=== PATIENT | female | born 1970 | race Two or more races ===

== ENCOUNTER 2020-12-16 15:31 | Emergency (ER) | payer SELFPAY ==
[2020-12-16] MEDS ORDERED: Acetaminophen 500 MG Tab PO ONE (16:19)
[2020-12-16] MEDS ORDERED: Sodium Chloride 0.9% 2.5 ML Syringe FLUSH PRN (16:19)
[2020-12-16] MEDS ORDERED: Sodium Chloride 0.9% 1,000 ML IV ONE (16:19)
[2020-12-16] MEDS ORDERED: Sodium Chloride 0.9% 10 ML Syringe FLUSH PRN (16:19)
[2020-12-16] MEDS ORDERED: Ketorolac 15 MG/ML SDV IVPUSH ONE (16:20)
--- NOTE | 2020-12-16 16:21 | EDM.PDOC ---
ED HPI GENERAL MEDICAL PROBLEM - General Stated Complaint: ABDOMINAL PAIN, HEADACHE Time Seen by Provider: 12/16/20 15:33 Source of Information: Reports: Patient History Limitations: Reports: No Limitations - History of Present Illness INITIAL COMMENTS - FREE TEXT/NARRATIVE: 50-year-old female no past medical history presents for lower abdominal pain, dysuria, hematuria, subjective fevers last night with chills all worsening over the last 4 days. No past medical history, she is been taking ibuprofen without relief. Denies nausea or vomiting denies shortness of breath or chest pain, pain does radiate to bilateral back right greater than left. abdomen Pain Score (Numeric/FACES): 8 - Related Data Allergies Allergy/AdvReac Type Severity Reaction Status Date / Time No Known Allergies Allergy Verified 12/16/20 16:22 Home Meds: Home Meds Acetaminophen/oxyCODONE [Percocet 325-5 MG] 1 each PO Q4H PRN #18 tab 12/16/20 [Rx] Sulfamethoxazole/Trimethoprim [Bactrim Ds Tablet] 1 each PO BID 14 Days #28 tablet 12/16/20 [Rx] ED ROS GENERAL - Review of Systems Review Of Systems: Comprehensive ROS is negative, except as noted in HPI. ED EXAM, GENERAL - Physical Exam Exam: See Below Exam Limited By: No Limitations General Appearance: Alert, WD/WN, No Apparent Distress Ears: Hearing Grossly Normal Throat/Mouth: Normal Voice, No Airway Compromise Head: Atraumatic, Normocephalic Neck: Normal Inspection Respiratory/Chest: No Respiratory Distress, Lungs Clear, Normal Breath Sounds, No Accessory Muscle Use Cardiovascular: Normal Peripheral Pulses, Regular Rate, Rhythm GI/Abdominal: Soft, Other (b/l lower abdominal/suprapubic TTP without guarding or rebound) Extremities: Normal Inspection Neurological: Alert Psychiatric: Normal Affect, Normal Mood Skin Exam: Warm, Dry, Intact, Normal Color Course - Vital Signs Last Recorded V/S: Last Vital Signs Temp 97 F 12/16/20 15:59 Pulse 97 12/16/20 15:59 Resp 16 12/16/20 15:59 BP 113/70 12/16/20 15:59 Pulse Ox 97 12/16/20 15:59 - Orders/Labs/Meds Orders: Active Orders 24 hr Category Date Time Status Sodium Chloride 0.9% [Saline Flush] Med 12/16/20 16:19 Active 10 ml FLUSH ASDIRECTED PRN Sodium Chloride 0.9% [Saline Flush] Med 12/16/20 16:19 Active 2.5 ml FLUSH ASDIRECTED PRN cefTRIAXone [Rocephin in Dextrose,Iso-Osm 1 GM/50 ML] 1 Med 12/16/20 17:51 Active gm Premix Bag 1 bag IV ONETIME Saline Lock Insert [OM.PC] Stat Oth 12/16/20 16:19 Ordered Medication Orders Ceftriaxone Sodium/Dextrose 1 (gm/ Premix) 50 mls @ 100 mls/hr IV ONETIME ONE Stop: 12/16/20 18:20 Last Admin: 12/16/20 17:55 Dose: 100 mls/hr Documented by: LEILANI Sodium Chloride (Sodium Chloride 0.9% 10 Ml Syringe) 10 ml FLUSH ASDIRECTED PRN PRN Reason: Keep Vein Open Last Admin: 12/16/20 16:46 Dose: 10 ml Documented by: LEILANI Sodium Chloride (Sodium Chloride 0.9% 2.5 Ml Syringe) 2.5 ml FLUSH ASDIRECTED PRN PRN Reason: Keep Vein Open Last Admin: 12/16/20 16:46 Dose: 2.5 ml Documented by: LEILANI Labs: Laboratory Tests 12/16/20 12/16/20 12/16/20 Range/Units 16:10 16:10 16:30 WBC 9.69 (4.0-11.0) K/uL RBC 4.27 L (4.30-5.90) M/uL Hgb 12.8 (12.0-16.0) g/dL Hct 38.2 (36.0-46.0) % MCV 89.5 (80.0-98.0) fL MCH 30.0 (27.0-32.0) pg MCHC 33.5 (31.0-37.0) g/dL RDW Std Deviation 40.4 (28.0-62.0) fl RDW Coeff of Adam 13 (11.0-15.0) % Plt Count 235 (150-400) K/uL MPV 10.60 (7.40-12.00) fL Neut % (Auto) 84.7 H (48.0-80.0) % Lymph % (Auto) 10.2 L (16.0-40.0) % [place] % (Auto) 4.7 (0.0-15.0) % Eos % (Auto) 0.2 (0.0-7.0) % Baso % (Auto) 0.2 (0.0-1.5) % Neut # (Auto) 8.2 H (1.4-5.7) K/uL Lymph # (Auto) 1.0 (0.6-2.4) K/uL [place] # (Auto) 0.5 (0.0-0.8) K/uL Eos # (Auto) 0.0 (0.0-0.7) K/uL Baso # (Auto) 0.0 (0.0-0.1) K/uL Nucleated RBC % 0.0 /100WBC Nucleated RBCs # 0 K/uL Lactate (0.20-2.00) mmol/L Sodium (136-145) mmol/L Potassium (3.5-5.1) mmol/L Chloride (98-107) mmol/L Carbon Dioxide (21.0-32.0) mmol/L BUN (7.0-18.0) mg/dL Creatinine (0.6-1.0) mg/dL Est Cr Clr Drug Dosing Estimated GFR (MDRD) ml/min Glucose (74-106) mg/dL Calcium (8.5-10.1) mg/dL Total Bilirubin (0.2-1.0) mg/dL AST (15-37) IU/L ALT (14-63) IU/L Alkaline Phosphatase (46-116) U/L Total Protein (6.4-8.2) g/dL Albumin (3.4-5.0) g/dL Globulin (2.6-4.0) g/dL Albumin/Globulin Ratio (0.9-1.6) Urine Color YELLOW Urine Appearance SLT CLOUDY Urine pH 6.0 (5.0-8.0) Ur Specific [place] 1.020 (1.001-1.035) Urine Protein 100 H (NEGATIVE) mg/dL Urine Glucose (UA) >=1000 (NEGATIVE) mg/dL Urine Ketones NEGATIVE (NEGATIVE) mg/dL Urine Occult Blood LARGE H (NEGATIVE) Urine Nitrite POSITIVE H (NEGATIVE) Urine Bilirubin NEGATIVE (NEGATIVE) Urine Urobilinogen 0.2 (<2.0) EU/dL Ur Leukocyte Esterase MODERATE H (NEGATIVE) Urine RBC 20-30 (0-2/HPF) Urine WBC TO NUMEROU (0-5/HPF) Ur Epithelial Cells FEW (NONE-FEW) Urine Bacteria 1+ H (NEGATIVE) Urine HCG, Qual NEGATIVE (NEGATIVE) 12/16/20 12/16/20 Range/Units 16:30 16:30 WBC (4.0-11.0) K/uL RBC (4.30-5.90) M/uL Hgb (12.0-16.0) g/dL Hct (36.0-46.0) % MCV (80.0-98.0) fL MCH (27.0-32.0) pg MCHC (31.0-37.0) g/dL RDW Std Deviation (28.0-62.0) fl RDW Coeff of Adam (11.0-15.0) % Plt Count (150-400) K/uL MPV (7.40-12.00) fL Neut % (Auto) (48.0-80.0) % Lymph % (Auto) (16.0-40.0) % [place] % (Auto) (0.0-15.0) % Eos % (Auto) (0.0-7.0) % Baso % (Auto) (0.0-1.5) % Neut # (Auto) (1.4-5.7) K/uL Lymph # (Auto) (0.6-2.4) K/uL [place] # (Auto) (0.0-0.8) K/uL Eos # (Auto) (0.0-0.7) K/uL Baso # (Auto) (0.0-0.1) K/uL Nucleated RBC % /100WBC Nucleated RBCs # K/uL Lactate 1.4 (0.20-2.00) mmol/L Sodium 134 L (136-145) mmol/L Potassium 3.7 (3.5-5.1) mmol/L Chloride 99 (98-107) mmol/L Carbon Dioxide 26.7 (21.0-32.0) mmol/L BUN 12 (7.0-18.0) mg/dL Creatinine 0.9 (0.6-1.0) mg/dL Est Cr Clr Drug Dosing TNP Estimated GFR (MDRD) > 60.0 ml/min Glucose 428 H (74-106) mg/dL Calcium 8.8 (8.5-10.1) mg/dL Total Bilirubin 0.9 (0.2-1.0) mg/dL AST 14 L (15-37) IU/L ALT 18 (14-63) IU/L Alkaline Phosphatase 148 H (46-116) U/L Total Protein 7.3 (6.4-8.2) g/dL Albumin 3.3 L (3.4-5.0) g/dL Globulin 4.0 (2.6-4.0) g/dL Albumin/Globulin Ratio 0.8 L (0.9-1.6) Urine Color Urine Appearance Urine pH (5.0-8.0) Ur Specific [place] (1.001-1.035) Urine Protein (NEGATIVE) mg/dL Urine Glucose (UA) (NEGATIVE) mg/dL Urine Ketones (NEGATIVE) mg/dL Urine Occult Blood (NEGATIVE) Urine Nitrite (NEGATIVE) Urine Bilirubin (NEGATIVE) Urine Urobilinogen (<2.0) EU/dL Ur Leukocyte Esterase (NEGATIVE) Urine RBC (0-2/HPF) Urine WBC (0-5/HPF) Ur Epithelial Cells (NONE-FEW) Urine Bacteria (NEGATIVE) Urine HCG, Qual (NEGATIVE) Meds: Medications Generic Name Dose Route Start Last Admin Trade Name Freq PRN Reason Stop Dose Admin Ceftriaxone Sodium/Dextrose 1 50 mls @ 100 mls/hr 12/16/20 17:51 12/16/20 17:55 gm/ Premix IV 12/16/20 18:20 100 mls/hr ONETIME ONE Administration Sodium Chloride 10 ml 12/16/20 16:19 12/16/20 16:46 Sodium Chloride 0.9% 10 Ml Syringe FLUSH 10 ml ASDIRECTED PRN Administration Keep Vein Open Sodium Chloride 2.5 ml 12/16/20 16:19 12/16/20 16:46 Sodium Chloride 0.9% 2.5 Ml Syringe FLUSH 2.5 ml ASDIRECTED PRN Administration Keep Vein Open Discontinued Medications Generic Name Dose Route Start Last Admin Trade Name Freq PRN Reason Stop Dose Admin Acetaminophen 1,000 mg 12/16/20 16:19 12/16/20 16:45 Acetaminophen 500 Mg Tab PO 12/16/20 16:20 1,000 mg ONETIME ONE Administration Sodium Chloride 1,000 mls @ 999 mls/hr 12/16/20 16:19 12/16/20 16:44 Normal Saline IV 12/16/20 17:19 999 mls/hr .Bolus ONE Administration Ceftriaxone Sodium 1 gm/ 50 mls @ 200 mls/hr 12/16/20 17:16 12/16/20 17:56 Sodium Chloride IV 12/16/20 17:30 Not Given ONETIME ONE Ceftriaxone Sodium/Dextrose Confirm 12/16/20 17:49 Rocephin In Dextrose,Iso-Osm 1 Gm/50 Ml Administered 12/16/20 17:50 Dose 50 mls @ as directed .ROUTE .STK-MED ONE Ketorolac Tromethamine 15 mg 12/16/20 16:20 12/16/20 16:44 Ketorolac 15 Mg/Ml Sdv IVPUSH 12/16/20 16:21 15 mg ONETIME ONE Administration - Re-Assessments/Exams Free Text/Narrative Re-Assessment/Exam: 12/16/20 16:19 We will get urinalysis, labs, CT imaging of the abdomen and pelvis, urine testing. We will follow up results and disposition accordingly. Will treat symptomatically with IV fluid bolus, Toradol, Tylenol. 12/16/20 17:18 Urinalysis is remarkable for a urinary tract infection. I will give a dose of Rocephin in the emergency department. And still awaiting the CT imaging results to assess for possible renal calculus as well. 12/16/20 17:56 CT imaging does not show any renal calculi. Will discharge patient with Bactrim. Return precautions were discussed at length. Departure - Departure Time of Disposition: 17:56 Disposition: Home, W Home Health Agency 06 Condition: Good Clinical Impression: UTI, Urinary tract infectious disease - Discharge Information Prescriptions: Sulfamethoxazole/Trimethoprim [Bactrim Ds Tablet] 1 each PO BID 14 Days #28 tablet Instructions: Urinary Tract Infection, Adult Referrals: PCP,None [Primary Care Provider] - Additional Instructions: Peraza anlisis de laboratorio es notable para libra infeccin del tracto urinario. Peraza anlisis de j carlos se ashley kofi, al igual que dave imgenes de TC. Le dieron libra dosis de ceftriaxtona, un poderoso antibitico. Le recetaron un medicamento llamado bactrim para saima dos veces al da valencia 14 brennan. A veces, estas infecciones pueden ser resistentes a los antibiticos orales. Si est empeorando o si dave sntomas no mejoran despus de dos brennan, regrese al hospital para libra reevaluacin. The following information is given to patients seen in the emergency department who are being discharged to home. This information is to outline your options for follow-up care. We provide all patients seen in our emergency department with a follow-up referral. The need for follow-up, as well as the timing and circumstances, are variable depending upon the specifics of your emergency department visit. If you don't have a primary care physician on staff, we will provide you with a referral. We always advise you to contact your personal physician following an emergency department visit to inform them of the circumstance of the visit and for follow-up with them and/or the need for any referrals to a consulting specialist. The emergency department will also refer you to a specialist when appropriate. This referral assures that you have the opportunity for follow-up care with a specialist. All of these measure are taken in an effort to provide you with optimal care, which includes your follow-up. Under all circumstances we always encourage you to contact your private physician who remains a resource for coordinating your care. When calling for follow-up care, please make the office aware that this follow-up is from your recent emergency room visit. If for any reason you are refused follow-up, please contact the [facility] Emergency Department at and asked to speak to the emergency department charge nurse. Please follow up with your primary care physician. If you do not have a primary care physician, see below: [facility] [address] [place] [id number] [facility] [address] [place], [place] [id number] [facility] [address], [place] [address] Sepsis Event Note (ED) - Focused Exam Vital Signs: Vital Signs Temp Pulse Resp BP Pulse Ox 12/16/20 15:59 97 F 97 16 113/70 97 - My Orders Last 24 Hours: My Active Orders 12/16/20 16:19 Sodium Chloride 0.9% [Saline Flush] 10 ml FLUSH ASDIRECTED PRN Sodium Chloride 0.9% [Saline Flush] 2.5 ml FLUSH ASDIRECTED PRN Saline Lock Insert [OM.PC] Stat 12/16/20 17:51 cefTRIAXone [Rocephin in Dextrose,Iso-Osm 1 GM/50 ML] 1 gm Premix Bag 1 bag IV ONETIME - Assessment/Plan Last 24 Hours: My Active Orders 12/16/20 16:19 Sodium Chloride 0.9% [Saline Flush] 10 ml FLUSH ASDIRECTED PRN Sodium Chloride 0.9% [Saline Flush] 2.5 ml FLUSH ASDIRECTED PRN Saline Lock Insert [OM.PC] Stat 12/16/20 17:51 cefTRIAXone [Rocephin in Dextrose,Iso-Osm 1 GM/50 ML] 1 gm Premix Bag 1 bag IV ONETIME
[2020-12-16] MEDS ORDERED: cefTRIAXone 1 GM in Sodium Chloride 0.9% 50 ML IV ONE (17:16)
[2020-12-16 17:19] LABS: BLOOD UREA NITROGEN,BUN 12 mg/dL (7.0-18.0); CARBON DIOXIDE,CO2 26.7 mmol/L (21.0-32.0); CHLORIDE,CL 99 mmol/L (98-107); GLUCOSE RANDOM 428 mg/dL (74-106); POTASSIUM,K 3.7 mmol/L (3.5-5.1); SODIUM,NA 134 mmol/L (136-145)
--- NOTE | 2020-12-16 17:43 | CT ---
INDICATION: Dysuria, hematuria, right flank pain. COMPARISON: None available TECHNIQUE: CT examination of the abdomen and pelvis was performed without contrast enhancement using 2.5 mm thick axial sections from the lung bases through the pubic symphysis. Oral contrast was not administered. Please note that all CT scans at this facility use dose modulation, iterative reconstruction, and/or weight-based dosing when appropriate to reduce radiation dose to as low as reasonably achievable. FINDINGS: In the abdomen, the unenhanced liver, spleen, pancreas, and adrenals are normal in appearance. The unenhanced kidneys are normal in appearance. The gallbladder is normal in appearance. The abdominal aorta is normal in caliber with no sign of dilatation. There is no sign of retroperitoneal mass or adenopathy. The stomach, loops of small bowel, and colon in the abdomen are normal in appearance. In the pelvis, the appendix is normal in appearance with no sign of inflammatory process. The loops of small bowel and colon in the pelvis are normal in appearance. The uterus and adnexal regions are normal in appearance. The urinary bladder is normal in appearance. There is no sign of pelvic or inguinal mass or adenopathy. There is no sign of free air or free fluid in the abdomen or pelvis. The lung bases are clear. There is mild anterior wedging of the T11 vertebral body, a mild compression fracture versus anatomic variant. There is no sign of any paraspinous soft tissue swelling to suggest an acute fracture. There is minimal scoliosis of the lumbar spine convex towards the left. IMPRESSION: Nothing seen to explain the patient`s right flank pain. Normal appearance of the right urinary system with no sign of obstruction or calculus. Normal appearance of the appendix. Normal appearance of the right adnexal region. Normal CT of the abdomen without contrast. Normal CT of the pelvis without contrast. Please note that all CT scans at this facility use dose modulation, iterative reconstruction, and/or weight-based dosing when appropriate to reduce radiation dose to as low as reasonably achievable. Dictated by Per Braswell MD @ Dec 16 2020 5:37PM Signed by Dr. Per Braswell @ Dec 16 2020 5:41PM
[2020-12-16] MEDS ORDERED: cefTRIAXone 1 GM in Premix Bag 1 BAG IV ONE (17:51)
== END 2020-12-16 18:34 | disposition home or self-care (01) ==
LOC: MW.ED 15:31
DX: N39.0 Urinary tract infection, site not specified (principal)
CPT/HCPCS: 36415; 74176; 80053; 81001; 81025; 83605; 85025; 96365; 96375; 99284; A9270; J0696; J1885; J7030; 99283

== ENCOUNTER 2021-04-11 16:00 | Emergency (ER) | payer SELFPAY ==
--- NOTE | 2021-04-11 16:20 | EDM.PDOC ---
ED HPI GENERAL MEDICAL PROBLEM - General Chief Complaint: Diabetic Complaint Stated Complaint: HIGH BLOOD SUGAR Time Seen by Provider: 04/11/21 16:01 Source of Information: Reports: Patient History Limitations: Reports: No Limitations - History of Present Illness INITIAL COMMENTS - FREE TEXT/NARRATIVE: 50-year-old female past medical history [id number] diabetes presents for multiple complaints. Patient notes that for the last week she has had blood glucose readings over 400. She is currently just on oral medication for her diabetes. She also notes persistent headache, dizziness. She describes the dizziness as room spinning and feeling off balance when walking. She has almost fallen a couple of times. She also notes that her bilateral soles of her feet a re very hot and somewhat painful. She denies any abdominal pain, nausea, vomiting. She denies fevers. head Pain Score (Numeric/FACES): 8 - Related Data Allergies Allergy/AdvReac Type Severity Reaction Status Date / Time No Known Allergies Allergy Verified 04/11/21 16:21 Home Meds: Home Meds . 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 ED EXAM GENERAL NO PERIP PULSE - Physical Exam Exam: See Below Exam Limited By: No Limitations General Appearance: Alert, WD/WN, No Apparent Distress Ears: Hearing Grossly Normal Throat/Mouth: Normal Voice, No Airway Compromise Head: Atraumatic, Normocephalic Neck: Normal Inspection Respiratory/Chest: No Respiratory Distress, Lungs Clear, Normal Breath Sounds, No Accessory Muscle Use Cardiovascular: Normal Peripheral Pulses, Regular Rate, Rhythm, No Edema GI/Abdominal: Soft, Non-Tender Extremities: Normal Inspection Neurological: Alert, Normal Cognition, Normal Gait Psychiatric: Normal Affect, Normal Mood Skin Exam: Warm, Dry, Intact, Normal Color Course - Vital Signs Last Recorded V/S: Last Vital Signs Temp 96.7 F L 04/11/21 18:38 Pulse 71 04/11/21 18:38 Resp 15 04/11/21 18:38 BP 134/84 04/11/21 18:38 Pulse Ox 98 04/11/21 18:38 - Orders/Labs/Meds Orders: Active Orders 24 hr Category Date Time Status CORONAVIRUS COVID-19 BRADLEY [MOLEC] Stat Lab 04/11/21 17:52 Received Dextrose 50% in Water Med 04/11/21 18:20 Active 50 ml IVPUSH ASDIRECTED PRN Glucagon,Human Recombinant [GlucaGen] Med 04/11/21 18:20 Active 1 mg IM ASDIRECTED PRN Sodium Chloride 0.9% [Normal Saline] 1,000 ml Med 04/11/21 18:20 Active IV .Bolus Sodium Chloride 0.9% [Saline Flush] Med 04/11/21 16:22 Active 10 ml FLUSH ASDIRECTED PRN Sodium Chloride 0.9% [Saline Flush] Med 04/11/21 16:22 Active 2.5 ml FLUSH ASDIRECTED PRN Saline Lock Insert [OM.PC] Stat Oth 04/11/21 16:22 Ordered Medication Orders Dextrose/Water (50% Dextrose In Water 50 Ml Syringe) 50 ml IVPUSH ASDIRECTED PRN PRN Reason: Hypoglycemia Glucagon (Glucagon,Human Recombinant 1 Mg Vial) 1 mg IM ASDIRECTED PRN PRN Reason: Hypoglycemia Sodium Chloride (Normal Saline) 1,000 mls @ 999 mls/hr IV .Bolus ONE Stop: 04/11/21 19:20 Last Admin: 04/11/21 18:35 Dose: 999 mls/hr Documented by: VINICIO Sodium Chloride (Sodium Chloride 0.9% 10 Ml Syringe) 10 ml FLUSH ASDIRECTED PRN PRN Reason: Keep Vein Open Last Admin: 04/11/21 17:40 Dose: 10 ml Documented by: VINICIO Sodium Chloride (Sodium Chloride 0.9% 2.5 Ml Syringe) 2.5 ml FLUSH ASDIRECTED PRN PRN Reason: Keep Vein Open Last Admin: 04/11/21 17:40 Dose: 2.5 ml Documented by: VINICIO Labs: Laboratory Tests 04/11/21 04/11/21 04/11/21 Range/Units 16:28 17:10 17:10 WBC 5.30 (4.0-11.0) K/uL RBC 4.30 (4.30-5.90) M/uL Hgb 12.9 (12.0-16.0) g/dL Hct 37.2 (36.0-46.0) % MCV 86.5 (80.0-98.0) fL MCH 30.0 (27.0-32.0) pg MCHC 34.7 (31.0-37.0) g/dL RDW Std Deviation 39.0 (28.0-62.0) fl RDW Coeff of Adam 12 (11.0-15.0) % Plt Count 262 (150-400) K/uL MPV 10.10 (7.40-12.00) fL Neut % (Auto) 59.0 (48.0-80.0) % Lymph % (Auto) 33.6 (16.0-40.0) % [place] % (Auto) 5.1 (0.0-15.0) % Eos % (Auto) 1.7 (0.0-7.0) % Baso % (Auto) 0.6 (0.0-1.5) % Neut # (Auto) 3.1 (1.4-5.7) K/uL Lymph # (Auto) 1.8 (0.6-2.4) K/uL [place] # (Auto) 0.3 (0.0-0.8) K/uL Eos # (Auto) 0.1 (0.0-0.7) K/uL Baso # (Auto) 0.0 (0.0-0.1) K/uL Nucleated RBC % 0.0 /100WBC Nucleated RBCs # 0 K/uL VBG pH 7.35 (7.31-7.41) VBG pCO2 51 (41-51) mmHG VBG pO2 30 mmHG VBG HCO3 28 (23-28) mEq/L VBG Total CO2 30 H (24-29) mmol/L VBG Base Excess 2.0 (-2.0-3.0) Sodium (136-145) mmol/L Potassium (3.5-5.1) mmol/L Chloride (98-107) mmol/L Carbon Dioxide (21.0-32.0) mmol/L BUN (7.0-18.0) mg/dL Creatinine (0.6-1.0) mg/dL Est Cr Clr Drug Dosing mL/min Estimated GFR (MDRD) ml/min Glucose (74-106) mg/dL POC Glucose 375 H (70-99) mg/dL Lactic Acid (0.4-2.0) mmol/L Calcium (8.5-10.1) mg/dL Magnesium (1.8-2.4) mg/dL Total Bilirubin (0.2-1.0) mg/dL AST (15-37) IU/L ALT (14-63) IU/L Alkaline Phosphatase (46-116) U/L Total Protein (6.4-8.2) g/dL Albumin (3.4-5.0) g/dL Globulin (2.6-4.0) g/dL Albumin/Globulin Ratio (0.9-1.6) Urine Color Urine Appearance Urine pH (5.0-8.0) Ur Specific [place] (1.001-1.035) Urine Protein (NEGATIVE) mg/dL Urine Glucose (UA) (NEGATIVE) mg/dL Urine Ketones (NEGATIVE) mg/dL Urine Occult Blood (NEGATIVE) Urine Nitrite (NEGATIVE) Urine Bilirubin (NEGATIVE) Urine Urobilinogen (<2.0) EU/dL Ur Leukocyte Esterase (NEGATIVE) Ketones (NEG) 04/11/21 04/11/21 04/11/21 Range/Units 17:10 17:10 17:40 WBC (4.0-11.0) K/uL RBC (4.30-5.90) M/uL Hgb (12.0-16.0) g/dL Hct (36.0-46.0) % MCV (80.0-98.0) fL MCH (27.0-32.0) pg MCHC (31.0-37.0) g/dL RDW Std Deviation (28.0-62.0) fl RDW Coeff of Adam (11.0-15.0) % Plt Count (150-400) K/uL MPV (7.40-12.00) fL Neut % (Auto) (48.0-80.0) % Lymph % (Auto) (16.0-40.0) % [place] % (Auto) (0.0-15.0) % Eos % (Auto) (0.0-7.0) % Baso % (Auto) (0.0-1.5) % Neut # (Auto) (1.4-5.7) K/uL Lymph # (Auto) (0.6-2.4) K/uL [place] # (Auto) (0.0-0.8) K/uL Eos # (Auto) (0.0-0.7) K/uL Baso # (Auto) (0.0-0.1) K/uL Nucleated RBC % /100WBC Nucleated RBCs # K/uL VBG pH (7.31-7.41) VBG pCO2 (41-51) mmHG VBG pO2 mmHG VBG HCO3 (23-28) mEq/L VBG Total CO2 (24-29) mmol/L VBG Base Excess (-2.0-3.0) Sodium 136 (136-145) mmol/L Potassium 4.1 (3.5-5.1) mmol/L Chloride 102 (98-107) mmol/L Carbon Dioxide 26.4 (21.0-32.0) mmol/L BUN 12 (7.0-18.0) mg/dL Creatinine 0.9 (0.6-1.0) mg/dL Est Cr Clr Drug Dosing 59.80 mL/min Estimated GFR (MDRD) > 60.0 ml/min Glucose 396 H (74-106) mg/dL POC Glucose (70-99) mg/dL Lactic Acid 1.1 (0.4-2.0) mmol/L Calcium 8.6 (8.5-10.1) mg/dL Magnesium 1.7 L (1.8-2.4) mg/dL Total Bilirubin 0.8 (0.2-1.0) mg/dL AST 16 (15-37) IU/L ALT 25 (14-63) IU/L Alkaline Phosphatase 140 H (46-116) U/L Total Protein 7.2 (6.4-8.2) g/dL Albumin 3.6 (3.4-5.0) g/dL Globulin 3.6 (2.6-4.0) g/dL Albumin/Globulin Ratio 1.0 (0.9-1.6) Urine Color Urine Appearance Urine pH (5.0-8.0) Ur Specific [place] (1.001-1.035) Urine Protein (NEGATIVE) mg/dL Urine Glucose (UA) (NEGATIVE) mg/dL Urine Ketones (NEGATIVE) mg/dL Urine Occult Blood (NEGATIVE) Urine Nitrite (NEGATIVE) Urine Bilirubin (NEGATIVE) Urine Urobilinogen (<2.0) EU/dL Ur Leukocyte Esterase (NEGATIVE) Ketones NEGATIVE (NEG) 04/11/21 Range/Units 17:58 WBC (4.0-11.0) K/uL RBC (4.30-5.90) M/uL Hgb (12.0-16.0) g/dL Hct (36.0-46.0) % MCV (80.0-98.0) fL MCH (27.0-32.0) pg MCHC (31.0-37.0) g/dL RDW Std Deviation (28.0-62.0) fl RDW Coeff of Adam (11.0-15.0) % Plt Count (150-400) K/uL MPV (7.40-12.00) fL Neut % (Auto) (48.0-80.0) % Lymph % (Auto) (16.0-40.0) % [place] % (Auto) (0.0-15.0) % Eos % (Auto) (0.0-7.0) % Baso % (Auto) (0.0-1.5) % Neut # (Auto) (1.4-5.7) K/uL Lymph # (Auto) (0.6-2.4) K/uL [place] # (Auto) (0.0-0.8) K/uL Eos # (Auto) (0.0-0.7) K/uL Baso # (Auto) (0.0-0.1) K/uL Nucleated RBC % /100WBC Nucleated RBCs # K/uL VBG pH (7.31-7.41) VBG pCO2 (41-51) mmHG VBG pO2 mmHG VBG HCO3 (23-28) mEq/L VBG Total CO2 (24-29) mmol/L VBG Base Excess (-2.0-3.0) Sodium (136-145) mmol/L Potassium (3.5-5.1) mmol/L Chloride (98-107) mmol/L Carbon Dioxide (21.0-32.0) mmol/L BUN (7.0-18.0) mg/dL Creatinine (0.6-1.0) mg/dL Est Cr Clr Drug Dosing mL/min Estimated GFR (MDRD) ml/min Glucose (74-106) mg/dL POC Glucose (70-99) mg/dL Lactic Acid (0.4-2.0) mmol/L Calcium (8.5-10.1) mg/dL Magnesium (1.8-2.4) mg/dL Total Bilirubin (0.2-1.0) mg/dL AST (15-37) IU/L ALT (14-63) IU/L Alkaline Phosphatase (46-116) U/L Total Protein (6.4-8.2) g/dL Albumin (3.4-5.0) g/dL Globulin (2.6-4.0) g/dL Albumin/Globulin Ratio (0.9-1.6) Urine Color YELLOW Urine Appearance CLEAR Urine pH 6.5 (5.0-8.0) Ur Specific [place] 1.015 (1.001-1.035) Urine Protein NEGATIVE (NEGATIVE) mg/dL Urine Glucose (UA) >=1000 (NEGATIVE) mg/dL Urine Ketones NEGATIVE (NEGATIVE) mg/dL Urine Occult Blood NEGATIVE (NEGATIVE) Urine Nitrite NEGATIVE (NEGATIVE) Urine Bilirubin NEGATIVE (NEGATIVE) Urine Urobilinogen 0.2 (<2.0) EU/dL Ur Leukocyte Esterase NEGATIVE (NEGATIVE) Ketones (NEG) Meds: Medications Generic Name Dose Route Start Last Admin Trade Name Freq PRN Reason Stop Dose Admin Dextrose/Water 50 ml 04/11/21 18:20 50% Dextrose In Water 50 Ml Syringe IVPUSH ASDIRECTED PRN Hypoglycemia Glucagon 1 mg 04/11/21 18:20 Glucagon,Human Recombinant 1 Mg Vial IM ASDIRECTED PRN Hypoglycemia Sodium Chloride 1,000 mls @ 999 mls/hr 04/11/21 18:20 04/11/21 18:35 Normal Saline IV 04/11/21 19:20 999 mls/hr .Bolus ONE Administration Sodium Chloride 10 ml 04/11/21 16:22 04/11/21 17:40 Sodium Chloride 0.9% 10 Ml Syringe FLUSH 10 ml ASDIRECTED PRN Administration Keep Vein Open Sodium Chloride 2.5 ml 04/11/21 16:22 04/11/21 17:40 Sodium Chloride 0.9% 2.5 Ml Syringe FLUSH 2.5 ml ASDIRECTED PRN Administration Keep Vein Open Discontinued Medications Generic Name Dose Route Start Last Admin Trade Name Freq PRN Reason Stop Dose Admin Diphenhydramine HCl 25 mg 04/11/21 16:27 04/11/21 17:39 Diphenhydramine 50 Mg/Ml Sdv IVPUSH 04/11/21 16:28 25 mg ONETIME ONE Administration Sodium Chloride 1,000 mls @ 999 mls/hr 04/11/21 16:22 04/11/21 17:38 Normal Saline IV 04/11/21 17:22 999 mls/hr .Bolus ONE Administration Insulin Human Regular 5 unit 04/11/21 18:20 04/11/21 18:35 Insulin Regular, Human 100 Units/Ml 10 Ml Vial IVPUSH 04/11/21 18:21 5 units ONETIME ONE Administration Protocol Ketorolac Tromethamine 15 mg 04/11/21 16:27 04/11/21 17:39 Ketorolac 30 Mg/Ml Sdv IVPUSH 04/11/21 16:28 15 mg ONETIME ONE Administration Metoclopramide HCl 10 mg 04/11/21 16:27 04/11/21 17:39 Metoclopramide 10 Mg/2 Ml Sdv IVPUSH 04/11/21 16:28 10 mg ONETIME ONE Administration - Re-Assessments/Exams Free Text/Narrative Re-Assessment/Exam: 04/11/21 18:47 Patient's labs are grossly unremarkable aside from hyperglycemia. We did provide her with a fluid bolus as well as insulin to get the glucose down today. I had a long discussion with patient and and they note that patient has not seen a physician secondary to insurance issues. I will prescribe patient Metformin and recommend PMD follow-up, will place her in a follow-up list. Departure - Departure Time of Disposition: 18:48 Disposition: Home, Self-Care 01 Condition: Good Clinical Impression: Hyperglycemia - Discharge Information Instructions: Type 2 Diabetes Mellitus, Diagnosis, Adult, [id number] Referrals: PCP,None [Primary Care Provider] - Forms: ED Department Discharge Additional Instructions: Miller examen mdico no muestra evidencia de infeccin, sin embargo, miller diabetes est muy mal controlada. Le he recetado 1000 mg de metformina dos veces al da. He escrito algunas recargas para que no se acaben. Intente hacer un seguimiento con un mdico de atencin primaria (informacin a continuacin) y si tiene alguna complicacin o inquietud, siempre es herminia y alentado a vernos en la amina de emergencias. No siempre podemos arreglar todo, demetrius hacemos todo lo posible para ayudar. La mejor manera de protegerse y proteger a los dems del COVID-19 es saima libra de las estuardo vacunas seguras y efectivas que porter demostrado reducir sustancialmente el riesgo de infeccin y enfermedad grave. [facility] actualmente ofrece vacunas COVID para cualquier persona de 18 aos o ms. Para programar libra megan, llame al [phone]. O, para que nuestras clnicas se comuniquen con usted sobre la programacin de miller vacuna en lnea, visite [email or web address] La siguiente informacin se emani a los pacientes atendidos en el departamento de emergencias que estn siendo dados de elodia a miller hogar. Esta informacin es para describir dave opciones para la atencin de seguimiento. Proporcionamos a todos los pacientes atendidos en nuestro departamento de emergencias libra derivacin de seguimiento. La necesidad de seguimiento, as lulú el momento y las circunstancias, varan segn los detalles de miller visita al departamento de emergencias. Si no tiene un mdico de atencin primaria en el personal, le proporcionaremos libra referencia. Siempre le recomendamos que se ponga en contacto con miller mdico personal despus de libra visita al servicio de urgencias para informarle de las circunstancias de la visita y para hacer un seguimiento con l y / o la necesidad de cualquier derivacin a un especialista consultor. El departamento de emergencias tambin lo derivar a un especialista cuando sea apropiado. Esta remisin le asegura que tiene la oportunidad de recibir atencin de seguimiento con un especialista. Todas estas medidas se maxwell en un esfuerzo por brindarle libra atencin ptima, que incluye miller seguimiento. En todas las circunstancias, siempre lo alentamos a que se comunique con miller mdico privado, quien sigue siendo un recurso para coordinar miller atencin. Cuando llame para recibir atencin de seguimiento, informe al consultorio que eliezer seguimiento es de miller visita reciente a la amina de emergencias. Si por alguna razn se le niega el seguimiento, comunquese con el [facility]amento [facility] al y solicite hablar con la enfermera a cargo del departamento de emergencias. Sha un seguimiento con miller mdico de atencin primaria. Si no tiene un mdico de atencin primaria, consulte a continuacin: [facility] [address] [place] [id number] [facility] [address] [place] [address] ([place] se tradujo con el traductor de Anagear y me disculpo por cualquier error.) Sepsis Event Note (ED) - Focused Exam Vital Signs: Vital Signs Temp Pulse Resp BP Pulse Ox 04/11/21 18:38 96.7 F L 71 15 134/84 98 04/11/21 17:48 96.9 F 60 14 119/82 99 04/11/21 16:19 97.8 F 76 18 110/72 97 - My Orders Last 24 Hours: My Active Orders 04/11/21 16:22 Sodium Chloride 0.9% [Saline Flush] 10 ml FLUSH ASDIRECTED PRN Sodium Chloride 0.9% [Saline Flush] 2.5 ml FLUSH ASDIRECTED PRN Saline Lock Insert [OM.PC] Stat 04/11/21 17:52 CORONAVIRUS COVID-19 BRADLEY [MOLEC] Stat 04/11/21 18:20 Dextrose 50% in Water 50 ml IVPUSH ASDIRECTED PRN Glucagon,Human Recombinant [GlucaGen] 1 mg IM ASDIRECTED PRN Sodium Chloride 0.9% [Normal Saline] 1,000 ml IV .Bolus - Assessment/Plan Last 24 Hours: My Active Orders 04/11/21 16:22 Sodium Chloride 0.9% [Saline Flush] 10 ml FLUSH ASDIRECTED PRN Sodium Chloride 0.9% [Saline Flush] 2.5 ml FLUSH ASDIRECTED PRN Saline Lock Insert [OM.PC] Stat 04/11/21 17:52 CORONAVIRUS COVID-19 BRADLYE [MOLEC] Stat 04/11/21 18:20 Dextrose 50% in Water 50 ml IVPUSH ASDIRECTED PRN Glucagon,Human Recombinant [GlucaGen] 1 mg IM ASDIRECTED PRN Sodium Chloride 0.9% [Normal Saline] 1,000 ml IV .Bolus
[2021-04-11] MEDS ORDERED: Sodium Chloride 0.9% 1,000 ML IV ONE ×2 (16:22→18:20)
[2021-04-11] MEDS ORDERED: Sodium Chloride 0.9% 10 ML Syringe FLUSH PRN (16:22)
[2021-04-11] MEDS ORDERED: Sodium Chloride 0.9% 2.5 ML Syringe FLUSH PRN (16:22)
[2021-04-11] MEDS ORDERED: Ketorolac 30 MG/ML SDV IVPUSH ONE (16:27)
[2021-04-11] MEDS ORDERED: diphenhydrAMINE 50 MG/ML SDV IVPUSH ONE (16:27)
[2021-04-11] MEDS ORDERED: Metoclopramide 10 MG/2 ML SDV IVPUSH ONE (16:27)
[2021-04-11 17:56] LABS: CHLORIDE,CL 102 mmol/L (98-107); POTASSIUM,K 4.1 mmol/L (3.5-5.1); SODIUM,NA 136 mmol/L (136-145)
[2021-04-11 18:09] LABS: BLOOD UREA NITROGEN,BUN 12 mg/dL (7.0-18.0); CARBON DIOXIDE,CO2 26.4 mmol/L (21.0-32.0); GLUCOSE RANDOM 396 mg/dL (74-106)
[2021-04-11] MEDS ORDERED: Glucagon,Human Recombinant 1 MG Vial IM PRN (18:20)
[2021-04-11] MEDS ORDERED: 50% Dextrose in Water 50 ML Syringe IVPUSH PRN (18:20)
[2021-04-11] MEDS ORDERED: Insulin Regular, Human 100 Units/ML 10 ML Vial IVPUSH ONE (18:20)
== END 2021-04-11 19:09 | disposition home or self-care (01) ==
LOC: MW.ED 16:00
DX: E11.65 Type 2 diabetes mellitus with hyperglycemia (principal); Z20.822 Contact with and (suspected) exposure to COVID-19
CPT/HCPCS: 36415; 80053; 81003; 82009; 82803; 82947; 83605; 83735; 85025; 87635; 96374; 96375; 99284; J1200; J1815; J1885; J2765; J7030; U0002